=== PATIENT | female | born 1990 | race Caucasian/White ===

== ENCOUNTER 2016-03-27 16:40 | Outpatient (CLI) | payer OTHER ==
--- NOTE | 2016-03-27 17:18 | DIAGNOSTIC IMAGING REPORT ---
PROCEDURE: XR FOOT 3 VIEWS - RIGHT INDICATION: RIGHT FOOT PAIN X 1MONTH TECHNIQUE: Three views. COMPARISON: None. FINDINGS: Osseous structures and joint spaces are normal. IMPRESSION: 1. Normal right foot.
== END 2016-03-27 23:00 ==
LOC: XR SRH 16:40
DX: M79.671 Pain in right foot (principal)

== ENCOUNTER 2016-04-30 16:52 | Outpatient (CLI) | payer OTHER | END 2016-04-30 23:00 | LOC: LAB SRH 16:52 | DX: N91.2 Amenorrhea, unspecified (principal) | CPT/HCPCS: 90004; 90074; 90078; 90261; 90364; 90599; 90600; 90605; 90606; 90710; 90851; 92863; 93140; 98480; 99777 ==

== ENCOUNTER 2016-07-25 16:50 | Outpatient (CLI) | payer OTHER ==
--- NOTE | 2016-07-25 17:58 | DIAGNOSTIC IMAGING REPORT ---
PROCEDURE: US OB DETAILED ANATOMIC INDICATION: ANATOMY TECHNIQUE: Jones scale, color, and spectral Doppler images of the second trimester gravid uterus were obtained. COMPARISON: None. FINDINGS: A single living intrauterine is in breech presentation. There is regular cardiac activity at a rate of 156 beats per minute. The placenta is fundal and away from the internal cervical os. The cervix is closed measuring approximately 3.5 cm in length. The amniotic fluid volume is subjectively normal. Biparietal diameter 4.7 cm at 20 weeks and 1 day Head circumference 18 cm at 20 weeks and 3-day Abdominal circumference 15.2 cm at 20 weeks and 3-day Femur length 3.2 cm at 20 weeks and 1 day Head to abdominal circumference ratio and femur length to abdominal circumference ratios are normal. Estimated weight 344 g Composite gestational age 20 weeks and 2 days, RAMSEY 12/10/2016 There was visualization of a number of normal structures including the intracranial contents, facial features, nuchal region, spine, four-chamber heart and outflow tracts to the extent that could be visualized, diaphragm, fluid-filled stomach, kidneys, abdomen, urinary bladder, upper and lower extremities, and genitals. A three-vessel umbilical cord, normal and placental cord insertion sites were seen. IMPRESSION: 1. Single living intrauterine with a composite gestational age of 20 weeks and 2 days, RAMSEY 12/10/2016 2. Symmetric and normal anatomy.
== END 2016-07-25 23:00 | disposition home or self-care (01) ==
LOC: US SRH 16:50
DX: Z34.82 Encounter for supervision of other normal pregnancy, second trimester (principal); Z3A.20 20 weeks gestation of pregnancy